=== PATIENT | male | born 1970 | race Two or more races ===

== ENCOUNTER 2019-01-24 22:04 | Inpatient (IN) | payer OTHER ==
[~2019-01-24] VITALS: Ht 177.8 cm; Wt 151.5 kg
[~2019-01-24 22:04] MED LIST: AMOX500T2 PO
--- NOTE | 2019-01-24 22:22 | NUR ---
BIB SELF WITH SISTER FROM OTHER HOSPITAL. AAOX4. BREATHING EVEN AND UNLABORED. AMBULATORY. C/O R CHEST PAIN 03/16 WITH FEELING OF PALPITATION. PAIN STARTED ABOUT 2129 WHILE DRIVING BACK FROM [facility]. PT REPORTS THAT HE FEELS SOB. REPORTS THAT PT WAS JUST DISCHARGED FROM ANOTHER HOSPITAL AND ON HIS WAY HOME. PT ALSO REPORTS THAT HE HAD AN ANGIOGRAM EARLIER. TO ER BED 10. PT PLACED ON MONITOR AND O2 VIA NC @ 2LPM. MD AT BEDSIDE. EKG AT BEDSIDE. IV LINE OBTAINED ON R AC 18G. BLOOD DRAWN AND SENT TO LAB.
[2019-01-24] MEDS ORDERED: NITROGLYCERIN PACKET 1 GM PACKET TD ONE (22:30)
[2019-01-24] MEDS ORDERED: ASPIRIN 325 MG TABLET PO ONE (22:30)
[2019-01-24 22:39] LABS: BASOPHILS % (AUTO) 0.4 % (0.0-2.0); EOSINOPHILS % (AUTO) 0.5 % (0.0-6.0); HEMATOCRIT 45 % (39-51); HEMOGLOBIN 14.9 g/dL (13.5-17.5); LYMPHOCYTES % (AUTO) 19.8 % (20.0-44.0); MEAN CORPUSCULAR HGB CONC 34 g/dl (31.0-36.0); MEAN CORPUSCULAR VOLUME 92 fL (80-96); MONOCYTES # (AUTO) 0.8 /CMM (0.1-1.30); MONOCYTES % (AUTO) 7.9 % (2.0-12.0); NEUTROPHILS # (AUTO) 7.2 /CMM (1.8-8.9); NEUTROPHILS % (AUTO) 71.4 % (43.0-81.0); PLATELET COUNT (AUTO) 242 /CMM (150-450); RED BLOOD CELL COUNT(AUTO) 4.84 MIL/uL (4.5-6.0); WHITE BLOOD COUNT (AUTO) 10.1 K/uL (4.3-11.0)
--- NOTE | 2019-01-24 22:39 | NUR ---
XRAY AT BEDSIDE
--- NOTE | 2019-01-24 22:40 | NUR ---
MADE AWARE OF BP 167/120. NO NEW ORDERS AT THIS TIME.
[2019-01-24] MEDS ORDERED: NITROGLYCERIN PACKET 1 GM PACKET ONE (22:42)
[2019-01-24] MEDS ORDERED: ASPIRIN 325 MG TABLET ONE (22:43)
[2019-01-24 22:48] LABS: CALCIUM, SERUM 9.1 mg/dL (8.5-10.1); CARBON DIOXIDE 30 mmol/L (21-32); CHLORIDE 104 mmol/L (98-107); CREATININE 0.9 mg/dL (0.6-1.3); GLUCOSE 108 mg/dL (74-106); POTASSIUM 3.2 mmol/L (3.5-5.1); SODIUM SERUM 141 mmol/L (136-145); UREA NITROGEN, BLOOD 17 mg/dL (7-18)
[2019-01-24 22:59] LABS: B-TYPE NATRIURETIC PEPTIDE 236 PG/ML (0-125)
--- NOTE | 2019-01-24 23:01 | NUR ---
REPEAT EKG AT BEDSIDE. HR NOTED AT 63, PT VERBALIZES THAT PALPITATION FEELING IS GONE.
--- NOTE | 2019-01-25 00:33 | NUR ---
NOTIFIED OF HR @ 118. PT VERBALIZES THAT HE FEELS THE PALPITATION AGAINS. NNO RECEIVED AT THIS TIME. WILL CONTINUE TO MONITOR THE PATIENT
--- NOTE | 2019-01-25 01:00 | NUR ---
EKG AT BEDSIDE
--- NOTE | 2019-01-25 01:02 | NUR ---
CALLING YULIANA RE: XRTHO READ
[2019-01-25] MEDS ORDERED: METOPROLOL SUCCINATE 25 MG TAB.SR.24H PO STA (01:19)
[2019-01-25] MEDS ORDERED: POTASSIUM CHLORIDE 20 MEQ TAB.PRT.SR PO ONE (01:30)
[2019-01-25] MEDS ORDERED: METOPROLOL SUCCINATE 25 MG TAB.SR.24H ONE (01:31)
[2019-01-25] MEDS ORDERED: MAGNESIUM HYDROXIDE 30 ML UDC PO PRN (02:00)
[2019-01-25] MEDS ORDERED: HYDROCODONE/APAP 5/325MG 1 EACH TABLET PO PRN (02:00)
[2019-01-25] MEDS ORDERED: ACETAMINOPHEN 325 MG TABLET PO PRN (02:00)
[2019-01-25] MEDS ORDERED: ONDANSETRON HCL/PF 4 MG/2 ML VIAL IVP PRN (02:00)
[2019-01-25] MEDS ORDERED: ZOLPIDEM TARTRATE 5 MG TABLET PO PRN (02:00)
[2019-01-25] MEDS ORDERED: Z GUARD REMEDY 2 OZ OINT TP PRN (02:00)
--- NOTE | 2019-01-25 02:11 | NUR ---
PT ASSIGNED TO 309-2
--- NOTE | 2019-01-25 02:16 | NUR ---
METOPROLOL SUCCINATE 25MG PO NOT AVAILABLE AT [facility]. MEDICATION WAS TAKEN FROM JAZZY.
--- NOTE | 2019-01-25 02:16 | NUR ---
REPORT GIVEN TO EVAN GONZALEZ.
[2019-01-25 03:00] VITALS: BP 122/66
--- NOTE | 2019-01-25 03:03 | NUR ---
PT TRANSPORTED TO UNIT WITH EMT AN DRN AT BEDSIDE W/ ACLS PROTOCOL. NAD NOTED DURING TRANSPORT. LISA REEVES RECEIVED PT ON FLOOR AND VERBAL ENDORSEMENT GIVEN
--- NOTE | 2019-01-25 03:10 | NUR ---
ADMISSION NOTE. PATIENT ARRIVED AT 0305 PATIENT IN STABLE CONDITION IN NO APPARENT DISTRESS. DENIES CP AT THIS TIME. BEING ADMITTED BY [facility] FOR CP WITH PALPITATIONS FROM ER. PATIENT HAD ANGIOGRAM YESTERDAY AT [facility] AND WAS DRIVING HOME WHEN HE STATES HE BEGAN TO HAVE SOB AND CP AGAIN AND CAME TO [facility]. PATIENT HAS RIGHT AC 18 GAUGE THAT IS PATENT AND INTACT. TELE APPLIED PATIENT IS RUNNING SR IN 60'S. RIGHT GROIN HAS DRESSING THAT IS CDI WITH NO S/S OF ACTIVE BLEEDING. ORIENTED TO ROOM. CALL LIGHT IN REACH. PATIENT LOW FALL RISK AND AMB. VERBALZIED UNDERSTANDING TO CALL FOR ASSISTANCE NEEDED.
--- NOTE | 2019-01-25 06:58 | NUR ---
RN PM CLOSING NOTES. PATIENT SEEN WITH EYES CLOSED. PATIENT IN NO APPARENT DISTRESS ON ROOM AIR. REPORT TO DAY NURSE FOR CONTINUITY OF CARE. PATIENT HAS HAD NO CP SINCE BEING ADMITTED. PATIENT SR ON TELE MONITOR. WILL ENDORSE POC AND STATUS TO DAYS SIFT RN.
--- NOTE | 2019-01-25 07:22 | NUR ---
TELE/RN OPENING NOTE PATIENT IN BED IN STABLE CONDITION. A/O X 4. NO SIGNS OF ACUTE DISTRESS. NO COMPLAIN OF PAIN OR DISCOMFORT. ON TELE MONITOR NOTED WITH SR WITH PVC RATE OF 64. ALL NEEDS ATTENDED TO. CALL LIGHT WITHIN REACH. WILL CONTINUE TO MONITOR TO ENSURE SAFETY.
[2019-01-25 08:01] VITALS: BP 118/74
--- NOTE | 2019-01-25 08:30 | NUR ---
TELE/RN SEEN AND EXAMINED BY DR SURESH.
[2019-01-25] MEDS: ENOXAPARIN SODIUM 40 MG/0.4 ML DISP.SYRIN SQ SCH ×2 (08:44→08:51)
[2019-01-25] MEDS: AMLODIPINE BESYLATE 5 MG TABLET PO SCH (08:45)
[2019-01-25] MEDS: ASPIRIN 81 MG TAB.CHEW PO SCH (08:45)
[2019-01-25] MEDS: CARVEDILOL 12.5 MG TABLET PO SCH ×2 (08:46→20:39)
[2019-01-25] MEDS ORDERED: METOPROLOL SUCCINATE 25 MG TAB.SR.24H PO SCH (09:00)
[2019-01-25 09:04] LABS: CALCIUM, SERUM 9.1 mg/dL (8.5-10.1); CREATININE 0.9 mg/dL (0.6-1.3); POTASSIUM 4.1 mmol/L (3.5-5.1)
[2019-01-25 09:11] LABS: ALBUMIN 3.4 g/dL (3.4-5.0); BILIRUBIN,TOTAL 0.8 mg/dL (0.2-1.0); MAGNESIUM 2.2 mg/dL (1.8-2.4); PHOSPHORUS 3.7 mg/dL (2.5-4.9); TOTAL PROTEIN, SERUM 6.8 g/dL (6.4-8.2)
[2019-01-25 09:13] LABS: BASOPHILS % (AUTO) 0.2 % (0.0-2.0); EOSINOPHILS % (AUTO) 0.4 % (0.0-6.0); HEMATOCRIT 41 % (39-51); HEMOGLOBIN 13.7 g/dL (13.5-17.5); LYMPHOCYTES # (AUTO) 1.3 /CMM (0.8-4.8); LYMPHOCYTES % (AUTO) 15.2 % (20.0-44.0); MEAN CORPUSCULAR HGB CONC 33 g/dl (31.0-36.0); MEAN CORPUSCULAR VOLUME 91 fL (80-96); MONOCYTES # (AUTO) 0.7 /CMM (0.1-1.30); MONOCYTES % (AUTO) 8.3 % (2.0-12.0); NEUTROPHILS # (AUTO) 6.4 /CMM (1.8-8.9); NEUTROPHILS % (AUTO) 75.9 % (43.0-81.0); PLATELET COUNT (AUTO) 222 /CMM (150-450); RED BLOOD CELL COUNT(AUTO) 4.52 MIL/uL (4.5-6.0); WHITE BLOOD COUNT (AUTO) 8.5 K/uL (4.3-11.0)
[2019-01-25] MEDS ORDERED: ASPI-1169 PO (09:14)
[2019-01-25] MEDS ORDERED: METO25TA3 PO (09:14)
--- NOTE | 2019-01-25 09:45 | NUR ---
TELE/RN SEEN BY DR GAN.
[2019-01-25 16:00] VITALS: BP 119/67
--- NOTE | 2019-01-25 18:15 | NUR ---
TELE/RN CLOSING NOTE PATIENT IN BED IN STABLE CONDITION. A/O X 4. NO SIGNS OF ACUTE DISTRESS. NO COMPLAIN OF PAIN OR DISCOMFORT. ON TELE MONITOR NOTED WITH SR WITH RATE OF 64. ALL NEEDS ATTENDED TO. CALL LIGHT WITHIN REACH. WILL ENDORSE TO NEXT SHIFT FOR CONTINUITY OF CARE.
--- NOTE | 2019-01-25 19:20 | NUR ---
RN NOTES; RECEIVED AWAKE ON BED, A/OX4, ABLE TO MAKE NEEDS KNOWN, NO PAIN OR DISCOMFORT UPON CHANGE OF SHIFT, ON TELE MONITOR SR-65, AMBULATORY, STEADY GAIT, CONTINENT BOTH B/B,,HL RAC G#18, KEPT ON CLOSE VISUAL CHECK, ORIENTED TO UNIT AND STAFF, BED LOW AND LOCKED, CALL LIGHT WITHIN EASY REACH, FALL,SAFETY AND ASPIRATION PRECAUTION OBSERVED AT ALL TIMES.
[2019-01-25 20:00] VITALS: BP 131/78
[2019-01-26] VITALS: BP 121/76
[2019-01-26 04:00] VITALS: BP 131/72
[2019-01-26 06:19] LABS: BASOPHILS % (AUTO) 0.2 % (0.0-2.0); EOSINOPHILS % (AUTO) 1.2 % (0.0-6.0); HEMATOCRIT 40 % (39-51); HEMOGLOBIN 13.2 g/dL (13.5-17.5); LYMPHOCYTES # (AUTO) 1.9 /CMM (0.8-4.8); LYMPHOCYTES % (AUTO) 25.5 % (20.0-44.0); MEAN CORPUSCULAR HGB CONC 33 g/dl (31.0-36.0); MEAN CORPUSCULAR VOLUME 91 fL (80-96); MONOCYTES # (AUTO) 0.7 /CMM (0.1-1.30); MONOCYTES % (AUTO) 9.8 % (2.0-12.0); NEUTROPHILS # (AUTO) 4.8 /CMM (1.8-8.9); NEUTROPHILS % (AUTO) 63.3 % (43.0-81.0); PLATELET COUNT (AUTO) 210 /CMM (150-450); RED BLOOD CELL COUNT(AUTO) 4.34 MIL/uL (4.5-6.0); WHITE BLOOD COUNT (AUTO) 7.6 K/uL (4.3-11.0)
--- NOTE | 2019-01-26 06:24 | NUR ---
RN NOTES: SLEEP WELL IN THE NIGHT, NO PAIN OR DISCOMFORT THE ENTIRE NIGHT, CALLS AND NEEDS ATTENDED, FALL,SAFETY AND ASPIRATION PRECAUTION OBSERVED, ENDORSED FOR CONTINUITY OF CARE.
[2019-01-26 06:34] LABS: CALCIUM, SERUM 8.7 mg/dL (8.5-10.1); CREATININE 0.9 mg/dL (0.6-1.3); MAGNESIUM 2.3 mg/dL (1.8-2.4); PHOSPHORUS 3.9 mg/dL (2.5-4.9); POTASSIUM 3.9 mmol/L (3.5-5.1)
--- NOTE | 2019-01-26 07:24 | NUR ---
TELE/RN OPENING NOTE PATIENT IN BED IN STABLE CONDITION. A/O X 4. NO SIGNS OF ACUTE DISTRESS. NO COMPLAIN OF PAIN OR DISCOMFORT. ON TELE MONITOR NOTED WITH SINUS RUTH IN LOW 50'S. ALL NEEDS ATTENDED TO. CALL LIGHT WITHIN REACH. WILL CONTINUE TO MONITOR TO ENSURE SAFETY.
[2019-01-26 08:00] VITALS: BP 120/69
[2019-01-26 08:15] VITALS: BP 120/69
[2019-01-26] MEDS: AMLODIPINE BESYLATE 5 MG TABLET PO SCH (08:15)
[2019-01-26] MEDS: CARVEDILOL 12.5 MG TABLET PO SCH (08:15)
[2019-01-26] MEDS: ASPIRIN 81 MG TAB.CHEW PO SCH (08:15)
[2019-01-26] MEDS: ENOXAPARIN SODIUM 40 MG/0.4 ML DISP.SYRIN SQ SCH (08:16)
--- NOTE | 2019-01-26 08:42 | NUR ---
RT NOTE PT REFUSED ABG. RN MICHELET NOTIFIED. PT AWAKE AND ALERT. NO DISTRESS NOTED.
[2019-01-26] MEDS ORDERED: CARV12.52 PO (11:21)
[2019-01-26] MEDS ORDERED: AMLO5TAB9 PO (11:21)
--- NOTE | 2019-01-26 12:00 | NUR ---
MS/REPLANTING MACHINE OPERATOR PATIENT DISCHARGE HOME IN STABLE CONDITION. A/O X 4. NO SIGNS OF ACUTE DISTRESS. NO COMPLAIN OF PAIN OR DISCOMFORT. DISCHARGE EDUCATION AND TEACHINGS PROVIDED, VERBALIZED UNDERSTANDING, PRESCRIPTION PROVIDED, MADE AWARE TO FOLLOW UP WITH PRIMARY PHYSICIAN, GOVERNMENT PROPERTY INSPECTOR AND ENVIRONMENTAL EMERGENCIES PLANNER WITHIN A WEEK, VERBALIZED UNDERSTANDING. NAME BAND AND IV LINE REMOVED. LEFT IN STABLE CONDITION ACCOMPANIED BY SISTER VIA PRIVATE CAR.
== END 2019-01-26 11:45 | disposition home or self-care (01) | DRG 201 ==
LOC: ER 22:06 → TELE 01-25 02:45 → MED 01-25 09:16 → TELE 01-25 12:35 → MED 01-26 08:14
PROVIDERS: ADMIT Nurse Practitioner Acute Care; ATTEND Nurse Practitioner Acute Care
DX: I48.0 Paroxysmal atrial fibrillation (principal); E66.2 Morbid (severe) obesity with alveolar hypoventilation; E87.6 Hypokalemia; Z87.891 Personal history of nicotine dependence; R25.2 Cramp and spasm; I10 Essential (primary) hypertension; Z68.42 Body mass index [BMI] 45.0-49.9, adult
CPT/HCPCS: 36415; 71045-TC; 80048-TC; 80053-TC; 80061-TC; 83735-TC; 83880; 84100-TC; 84443-TC; 84484-TC; 85025-TC; 85378-TC; 87081-TC; 93307-TC; 93970-TC; G0378; J1650

== ENCOUNTER 2019-09-19 05:18 | Inpatient (IN) | payer OTHER ==
[~2019-09-19] VITALS: Ht 176.5 cm; Wt 152.0 kg
[2019-09-19] VITALS (7 sets, daily range): BP systolic 89–121; BP diastolic 48–68
[~2019-09-19 05:18] MED LIST changes: +AMLO5TAB9 PO; -AMOX500T2 PO; +ASPI-1169 PO; +CARV12.52 PO
--- NOTE | 2019-09-19 05:25 | NUR ---
PT BIB EMS C/O INTERMITTENT RAPID HEART RATE X1 HR PACKAGE DELIVERY ROOM SERVICE RUNNER. "I HAVE CP WHEN MY HR IS HIGH". PT COMPLAINED OF MIDSTERNAL CHEST PAIN AN HOUR AGO BUT DENIES CHEST PAIN AT THIS TIME. HR UPON ARRIVAL IS AT 160'S. PT CONNECTED TO THE HOME INSURANCE AGENT AND POX
--- NOTE | 2019-09-19 05:25 | NUR ---
IV LINE ESTABLISHED RAC G 20. BLOOD DRAWN AND SENT TO LAB.
[2019-09-19] MEDS ORDERED: ADENOSINE 6 MG/2 ML VIAL ONE (05:28)
[2019-09-19] MEDS ORDERED: IV NS 0.9% 500 ML IV ONE (05:30)
[2019-09-19] MEDS ORDERED: ADENOSINE 6 MG/2 ML VIAL IVP ONE (05:30)
[2019-09-19 05:35] LABS: BASOPHILS % (AUTO) 0.1 % (0.0-2.0); HEMATOCRIT 47 % (39-51); HEMOGLOBIN 15.3 g/dL (13.5-17.5); LYMPHOCYTES # (AUTO) 1.3 /CMM (0.8-4.8); LYMPHOCYTES % (AUTO) 6.2 % (20.0-44.0); MEAN CORPUSCULAR HGB CONC 33 g/dl (31.0-36.0); MEAN CORPUSCULAR VOLUME 91 fL (80-96); MONOCYTES # (AUTO) 1.2 /CMM (0.1-1.30); MONOCYTES % (AUTO) 5.5 % (2.0-12.0); NEUTROPHILS # (AUTO) 18.7 /CMM (1.8-8.9); NEUTROPHILS % (AUTO) 88.2 % (43.0-81.0); PLATELET COUNT (AUTO) 217 /CMM (150-450); RED BLOOD CELL COUNT(AUTO) 5.13 MIL/uL (4.5-6.0); WHITE BLOOD COUNT (AUTO) 21.2 K/uL (4.3-11.0)
[2019-09-19 05:42] LABS: CALCIUM, SERUM 9.2 mg/dL (8.5-10.1); CARBON DIOXIDE 30 mmol/L (21-32); CHLORIDE 100 mmol/L (98-107); CREATININE 1.3 mg/dL (0.6-1.3); GLUCOSE 139 mg/dL (74-106); POTASSIUM 3.6 mmol/L (3.5-5.1); SODIUM SERUM 140 mmol/L (136-145); UREA NITROGEN, BLOOD 12 mg/dL (7-18)
[2019-09-19] MEDS ORDERED: METOPROLOL TARTRATE INJ 5 MG/5 ML AMPUL ONE (05:44)
--- NOTE | 2019-09-19 05:46 | NUR ---
XRAY AT BEDSIDE
--- NOTE | 2019-09-19 05:50 | NUR ---
5MG METOPROLOL HELD PER VERBAL MD FREEMAN ORDER. VS BP: 146/83 HR:92
--- NOTE | 2019-09-19 05:56 | NUR ---
ER TALKING TO RILEY YANCEY REGARDING PT ADMISSION.
[2019-09-19] MEDS ORDERED: METOPROLOL TARTRATE INJ 5 MG/5 ML AMPUL IV ONE (06:00)
--- NOTE | 2019-09-19 06:05 | NUR ---
BED ASSIGNMENT 323-2
[2019-09-19] MEDS ORDERED: HYDROCODONE/APAP 5/325MG 1 EACH TABLET PO PRN (06:30)
[2019-09-19] MEDS ORDERED: MAGNESIUM HYDROXIDE 30 ML UDC PO PRN (06:30)
[2019-09-19] MEDS ORDERED: ONDANSETRON HCL/PF 4 MG/2 ML VIAL IVP PRN (06:30)
[2019-09-19] MEDS ORDERED: MORPHINE SULFATE INJ 2 MG/ML DISP.SYRIN IV PRN (06:30)
[2019-09-19] MEDS ORDERED: MAG HYDROX/AL HYDROX/SIMETH 30 ML UDC PO PRN (06:30)
[2019-09-19 07:02] LABS: ALBUMIN 3.7 g/dL (3.4-5.0); BILIRUBIN,DIRECT 0.2 mg/dL (0.0-0.2); BILIRUBIN,TOTAL 0.6 mg/dL (0.2-1.0); MAGNESIUM 2.1 mg/dL (1.8-2.4); TOTAL PROTEIN, SERUM 8.5 g/dL (6.4-8.2)
--- NOTE | 2019-09-19 07:22 | NUR ---
REPORT GIVEN TO LISA NANCE
[2019-09-19 07:48] LABS: THYROID STIMULATING HORMONE 0.537 uIU/mL (0.358-3.74)
--- NOTE | 2019-09-19 07:55 | NUR ---
PATIENT TRANSFERRED TO ROOM 323-2 VIA ACLS PROTOCOL, ENDORSED TO LEE ANN RN. PATIENT A/OX4, ON O2 AT 4LPM VIA NC, AMBULATORY.
--- NOTE | 2019-09-19 08:00 | NUR ---
rn notes patient received on 4l o2, no sob noted, patient denies chest pain at this time. Vital signs stable. Bed at the lowest setting, call light within reach, side rails up x2.
[2019-09-19] MEDS: AMLODIPINE BESYLATE 5 MG TABLET PO SCH (08:45)
[2019-09-19] MEDS: CARVEDILOL 12.5 MG TABLET PO SCH ×2 (08:45→20:14)
[2019-09-19] MEDS ORDERED: ASPIRIN 81 MG TAB.CHEW PO SCH (09:00)
--- NOTE | 2019-09-19 09:11 | NUR ---
PV DESIGN ENGINEER NOTES WITH ORDER FROM DR SURESH TO TRANSFER TO JAZZY PATIENT WILL REQUIRE AMIODARONE DRIP. CALLED [facility] LIFE SKILLS WORKER AND REQUESTED FOR BED
[2019-09-19] MEDS ORDERED: AMIODARONE 900 MG in IV D5W 500 ML IV PRN ×4 (09:30)
--- NOTE | 2019-09-19 09:50 | NUR ---
RN NOTES RECEIVED PT FROM [facility] IN ROOM 103, JAZZY STATUS, PT IS A/Ox4, ON RA, NO SOB NOTED, FAMILY AT THE BEDSIDE, ON TELE PT SR HR IN 90'S , DR KERWIN BENAVIDES REGARDING HEART RHYTHM, NEW ORDER RECEIVED , R AC IV SITE G 20 , CLEAN, DRY AND INTACT, SR UP x3, CALL LIGHT WITHIN EASY REACH, BED LOCKED AND IN LOWEST POSITION, CONTINUE TO MONITOR
--- NOTE | 2019-09-19 09:52 | NUR ---
rn notes Patient transfered to BETO RN in JAZZY for MALCOLM, report given bedside.
[2019-09-19] MEDS ORDERED: RIVAROXABAN 10 MG TABLET PO SCH (10:00)
[2019-09-19] MEDS: AMIODARONE 150 MG in IV D5W 100 ML IV ONE ×2 (10:15→10:22)
[2019-09-19] MEDS: DRONEDARONE HYDROCHLORIDE 400 MG TABLET PO SCH ×2 (10:37→17:24)
[2019-09-19] MEDS: ACETAMINOPHEN 325 MG TABLET PO PRN ×2 (10:41→20:14)
--- NOTE | 2019-09-19 12:00 | NUR ---
RN NOTES PT SITTING UP ON CHAIR, C/O SORE THROAT , DR ABRAHAM NOTED. VSS STABLE, CONTINUE TO MONITOR.
[2019-09-19 16:42] LABS: BILIRUBIN,URINE NEGATIVE (NEGATIVE); BLOOD, URINE TRACE-INTA Ery/uL (NEGATIVE); COLOR,URINE YELLOW (YELLOW); KETONES,URINE 15 (NEGATIVE); LEUKOCYTE ESTERASE ,URINE NEGATIVE (NEGATIVE); NITRITE, URINE NEGATIVE (NEGATIVE); PROTEIN,URINE 30 mg/dl (NEGATIVE); UGLUCOSE NEGATIVE (NEGATIVE)
[2019-09-19 16:43] LABS: APPEARANCE,URINE CLEAR (CLEAR)
[2019-09-19 17:28] LABS: BACTERIA,URINE Few /HPF (None Seen); COARSE GRANULAR CASTS,URINE Few /LPF (None Seen); SQUAMOUS EPITHELIAL CELL,UR Few /HPF (None Seen); WBC,URINE 0-2 /HPF (0-3)
--- NOTE | 2019-09-19 18:00 | NUR ---
RN NOTES NO SIGNIFICANT CHANGES NOTED ON THIS SHIFT, PT STILL SR ON THE MONITOR , NO DISTESS NOTED, WILL ENDOSE TO BRANCH OPERATIONS MANAGER NURSE FOR CONTINUITY OF CARE .
--- NOTE | 2019-09-19 19:25 | NUR ---
JAZZY/RN NOTES PATIENT RECEIVED SITTING ON CHAIR, WATCHING TV, ALERT AND ORIENTED X4, DENIES ANY PAIN AT THIS TIME. IN NO ACUTE DISTRESS. BREATHING EVEN AND UNLABORED. NO SHORTNESS OF BREATH NOTED. ON TELE MONITOR WITH SINUS RHYTHM. IV SITE WITH NO S/S OF INFECTION/INFILTRATION. SAFETY MAINTAINED. BED AT THE LOWEST LOCKED POSITIONED. CALL LIGHT WITHIN REACH. WILL CONTINUE TO MONITOR PER PLAN OF CARE.
[2019-09-20] VITALS: BP 120/68
[2019-09-20 04:00] VITALS: BP 100/52
--- NOTE | 2019-09-20 06:53 | NUR ---
JAZZY/RN NOTES PATIENT REMAINED IN STABLE CONDITION. RESTING COMFORTABLY AT THIS TIME. ALERT AND ORIENTED X4, DENIES ANY PAIN AT THIS TIME. IN NO ACUTE DISTRESS. BREATHING EVEN AND UNLABORED. NO SHORTNESS OF BREATH NOTED. ON TELE MONITOR WITH SINUS RHYTHM/ SINUS RUTH IN RATE 56. IV SITE WITH NO S/S OF INFECTION/INFILTRATION. SAFETY MAINTAINED. BED AT THE LOWEST LOCKED POSITIONED. CALL LIGHT WITHIN REACH. WILL ENDORSE TO AM SHIFT NURSE FOR MALCOLM.
--- NOTE | 2019-09-20 07:00 | NUR ---
RN INITIAL NOTE PATIENT IN BED, AWAKE AND ALERTX4. ON THE CHAIR. ON ROOM AIR, NO COMPLAINS OF ANY PAIN OR SOB AT THIS TIME. ON TELE MONITOR, SR. HAS A RIGHT AC #20. SL. LABS PENDING. BED IN LOWEST POSITION. CALL LIGHT WITHIN REACH, WILL CONTINUE TO MONITOR
[2019-09-20 07:18] LABS: BASOPHILS % (AUTO) 0.2 % (0.0-2.0); EOSINOPHILS % (AUTO) 0.1 % (0.0-6.0); HEMATOCRIT 41 % (39-51); HEMOGLOBIN 13.6 g/dL (13.5-17.5); LYMPHOCYTES # (AUTO) 1.7 /CMM (0.8-4.8); LYMPHOCYTES % (AUTO) 11.3 % (20.0-44.0); MEAN CORPUSCULAR HGB CONC 33 g/dl (31.0-36.0); MEAN CORPUSCULAR VOLUME 91 fL (80-96); MONOCYTES # (AUTO) 1.4 /CMM (0.1-1.30); MONOCYTES % (AUTO) 9.8 % (2.0-12.0); NEUTROPHILS # (AUTO) 11.6 /CMM (1.8-8.9); NEUTROPHILS % (AUTO) 78.6 % (43.0-81.0); PLATELET COUNT (AUTO) 211 /CMM (150-450); RED BLOOD CELL COUNT(AUTO) 4.53 MIL/uL (4.5-6.0); WHITE BLOOD COUNT (AUTO) 14.7 K/uL (4.3-11.0)
[2019-09-20 07:38] LABS: CALCIUM, SERUM 8.9 mg/dL (8.5-10.1); CREATININE 1.4 mg/dL (0.6-1.3); POTASSIUM 3.6 mmol/L (3.5-5.1)
[2019-09-20 08:00] VITALS: BP 106/64
[2019-09-20] MEDS: DRONEDARONE HYDROCHLORIDE 400 MG TABLET PO SCH (08:04)
[2019-09-20] MEDS: AMLODIPINE BESYLATE 5 MG TABLET PO SCH (08:07)
[2019-09-20] MEDS: CARVEDILOL 12.5 MG TABLET PO SCH (08:08)
--- NOTE | 2019-09-20 08:11 | NUR ---
RN NOTE CARVEDILOL NOT GIVEN DUE TO HR OF 58
[2019-09-20 08:15] VITALS: BP 106/64
[2019-09-20] MEDS ORDERED: AZITHROMYCIN 250 MG TABLET PO SCH (09:00)
--- NOTE | 2019-09-20 09:40 | NUR ---
RN NOTE DR SURESH AT BEDSIDE, CLEARING PATIENT FOR DC TODAY. WAITING FOR DR ABRAHAM TO ORDER THE DC.
[2019-09-20] MEDS ORDERED: DRON400T2 PO (11:06)
--- NOTE | 2019-09-20 11:50 | NUR ---
MANAGER HEALTH NOTE PATIENT ALERT AND ORIENTED X4. GOING HOME VIA PRIVATE CAR. FAMILY AT BEDSIDE. EXIT CARE PACKET GIVEN TO PATIENT AND DISCHARGE INSTRUCTIONS. IV SITE AND ID BAND REMOVED. EDUCATED PATIENT, INSTRUCTED REGARDING FOLLOW UP APPOINTMENTS. VERBALIZED UNDERSTANDING. NO PICTURES TAKEN, SKIN IS INTACT. PATIENT REFUSED A WHEELCHAIR, WALKED INSTEAD.
== END 2019-09-20 11:47 | disposition home or self-care (01) | DRG 308 ==
LOC: ER 05:18 → MED 07:33 → TELE 08:10 → TELE1 09:47 → TELE-TD 11:52 → MEDSG1 09-20 08:37
PROVIDERS: ADMIT Family Medicine; ATTEND Family Medicine
DX: I48.91 Unspecified atrial fibrillation (principal); N17.0 Acute kidney failure with tubular necrosis; Z68.42 Body mass index [BMI] 45.0-49.9, adult; I10 Essential (primary) hypertension; Z79.82 Long term (current) use of aspirin; F17.210 Nicotine dependence, cigarettes, uncomplicated; D72.829 Elevated white blood cell count, unspecified; R73.9 Hyperglycemia, unspecified; E66.01 Morbid (severe) obesity due to excess calories; Z82.49 Family history of ischemic heart disease and other diseases of the circulatory system
CPT/HCPCS: 36415; 71045-TC; 80048-TC; 80061-TC; 80076-TC; 81000-TC; 83735-TC; 84100-TC; 84443-TC; 84484-TC; 85025-TC; 85730-TC; 87081-TC; 87086-TC; G0378; J0153; J0282; J3490; J7040; J7060

== ENCOUNTER 2021-07-15 06:38 | Emergency (ER) | payer OTHER ==
[~2021-07-15] VITALS: Ht 177.8 cm; Wt 161.0 kg
[~2021-07-15 06:38] MED LIST changes: +AMLO-212 PO; -AMLO5TAB9 PO; +DRON400T6 PO
[2021-07-15] MEDS ORDERED: APIXABAN 5 MG TABLET PO SCH (07:00)
[2021-07-15] MEDS ORDERED: APIXABAN 5 MG TABLET ONE (07:01)
[2021-07-15] MEDS ORDERED: DILTIAZEM HCL 25 MG IV ONE (07:09)
[2021-07-15] MEDS ORDERED: DILTIAZEM HCL 50 MG IV IV ONE ×2 (07:30→08:30)
[2021-07-15 07:35] LABS: BASOPHILS % (AUTO) 0.5 % (0.0-2.0); EOSINOPHILS % (AUTO) 1.2 % (0.0-6.0); HEMATOCRIT 44 % (39-51); HEMOGLOBIN 14.5 g/dL (13.5-17.5); LYMPHOCYTES # (AUTO) 1.5 K/uL (0.8-4.8); LYMPHOCYTES % (AUTO) 21.4 % (20.0-44.0); MEAN CORPUSCULAR HGB CONC 33 g/dl (31.0-36.0); MEAN CORPUSCULAR VOLUME 92 fL (80-96); MONOCYTES # (AUTO) 0.6 K/uL (0.1-1.30); MONOCYTES % (AUTO) 8.3 % (2.0-12.0); NEUTROPHILS # (AUTO) 4.8 K/uL (1.8-8.9); NEUTROPHILS % (AUTO) 68.6 % (43.0-81.0); PLATELET COUNT (AUTO) 236 K/uL (150-450); RED BLOOD CELL COUNT(AUTO) 4.83 MIL/uL (4.5-6.0)
[2021-07-15 08:22] LABS: CALCIUM, SERUM 8.7 mg/dL (8.5-10.1); CARBON DIOXIDE 30 mmol/L (21-32); CHLORIDE 104 mmol/L (98-107); CREATININE 0.9 mg/dL (0.6-1.3); GLUCOSE 131 mg/dL (74-106); POTASSIUM 3.6 mmol/L (3.5-5.1); SODIUM SERUM 141 mmol/L (136-145); UREA NITROGEN, BLOOD 14 mg/dL (7-18)
--- NOTE | 2021-07-15 08:34 | NUR ---
MASTER OROURKE, METAL FILER.
--- NOTE | 2021-07-15 08:35 | NUR ---
THE PATIENT IS TAKEN TO CT
[2021-07-15] MEDS ORDERED: IOHEXOL-350 100 ML VIAL IV ONE (08:38)
[2021-07-15] MEDS ORDERED: IV NS 0.9% 250 ML IV ONE (08:38)
[2021-07-15] MEDS ORDERED: DILTIAZEM HCL 50 MG IV ONE (08:42)
--- NOTE | 2021-07-15 08:49 | NUR ---
THE PATIENT IS BACK FROM CT
--- NOTE | 2021-07-15 09:07 | NUR ---
PAGED DR. RIVAS
[2021-07-15] MEDS ORDERED: APIX5TAB PO (09:32)
--- NOTE | 2021-07-15 09:56 | NUR ---
IV removed. Catheter intact and site benign. Pressure and 4x4 applied to site. No bleeding noted.Patient discharged to home in stable condition. Written and verbal after care instructions given. Patient verbalizes understanding of instruction.
[2021-07-15 09:57] VITALS: BP 130/61
== END 2021-07-15 09:57 | disposition home or self-care (01) ==
LOC: ER 06:42
DX: I48.20 Chronic atrial fibrillation, unspecified (principal); I10 Essential (primary) hypertension; F17.200 Nicotine dependence, unspecified, uncomplicated; Z79.899 Other long term (current) drug therapy; Z79.82 Long term (current) use of aspirin
CPT/HCPCS: 36415; 71045; 71275; 80048; 83880; 84484; 85025; 85378; 93005 ×2; 96374; 96376; 99285; J3490 ×2; J7050; Q9967

== ENCOUNTER 2022-03-10 02:24 | Emergency (ER) | payer OTHER ==
[~2022-03-10] VITALS: Ht 180.3 cm; Wt 158.8 kg
[~2022-03-10 02:24] MED LIST changes: +APIX5TAB PO
--- NOTE | 2022-03-10 02:49 | NUR ---
URINE SENT TO LAB
--- NOTE | 2022-03-10 02:52 | NUR ---
BLOOD COLLECTED AND SENT TO LAB
[2022-03-10] MEDS ORDERED: ONDANSETRON HCL/PF 4 MG/2 ML VIAL ONE (02:53)
[2022-03-10] MEDS ORDERED: KETOROLAC TROMETHAMINE INJ 30 MG/ML VIAL ONE (02:53)
--- NOTE | 2022-03-10 02:53 | NUR ---
BIBWIFE. TO ER BED 3. AAOX4. NOT IN RESP DISTRESS. AMBULATORY. CAME IN FOR L FLANK PAIN THAT STARTED X 1 HR ACTUARIAL CONSULTANT. PAIN IS 10/10 SHARP. PT STATES THAT HE WAS AT THE URGENT CARE EARLIER THIS MORNING BECAUSE HE STARTED TO HAVE BLOOD IN HIS URINE. HE STATES THAT HE WAS DIAGNOSED WITH RENAL CYST EARLIER. PT WAS NOTED BLOODY URINE UPON COLLECTION. MD WAS AT THE BEDSIDE. ORDERS RECEIVED, NOTED AND CARRIED OUT
[2022-03-10] MEDS ORDERED: ONDANSETRON HCL/PF 4 MG/2 ML VIAL IVP ONE (03:00)
[2022-03-10] MEDS ORDERED: KETOROLAC TROMETHAMINE INJ 30 MG/ML VIAL IV ONE (03:00)
[2022-03-10] MEDS ORDERED: IV NS 0.9% 1,000 ML BAG IV ONE (03:00)
--- NOTE | 2022-03-10 03:03 | NUR ---
[facility]
[2022-03-10 03:13] LABS: BASOPHILS % (AUTO) 0.3 % (0.0-2.0); BILIRUBIN,URINE NEGATIVE (NEGATIVE); COLOR,URINE YELLOW (YELLOW); EOSINOPHILS % (AUTO) 0.7 % (0.0-6.0); HEMATOCRIT 41 % (39-51); HEMOGLOBIN 13.8 g/dL (13.5-17.5); LEUKOCYTE ESTERASE ,URINE NEGATIVE (NEGATIVE); LYMPHOCYTES # (AUTO) 1.6 K/uL (0.8-4.8); LYMPHOCYTES % (AUTO) 22.2 % (20.0-44.0); MEAN CORPUSCULAR HGB CONC 33 g/dl (31.0-36.0); MEAN CORPUSCULAR VOLUME 91 fL (80-96); MONOCYTES # (AUTO) 0.6 K/uL (0.1-1.30); MONOCYTES % (AUTO) 8.9 % (2.0-12.0); NEUTROPHILS # (AUTO) 4.9 K/uL (1.8-8.9); NEUTROPHILS % (AUTO) 67.9 % (43.0-81.0); NITRITE, URINE NEGATIVE (NEGATIVE); PLATELET COUNT (AUTO) 218 K/uL (150-450); PROTEIN,URINE NEGATIVE (NEGATIVE); RED BLOOD CELL COUNT(AUTO) 4.57 MIL/uL (4.5-6.0); UGLUCOSE NEGATIVE (NEGATIVE); UROBILINOGEN,URINE 0.2 EU/dL (0.2); WHITE BLOOD COUNT (AUTO) 7.3 K/uL (4.3-11.0)
[2022-03-10 03:16] LABS: BACTERIA,URINE None seen /HPF (None Seen); RBC,URINE TOO NUMEROUS TO COUN /HPF (0-2); SQUAMOUS EPITHELIAL CELL,UR Few /HPF (None Seen); WBC,URINE 0-2 /HPF (0-3)
--- NOTE | 2022-03-10 03:18 | NUR ---
PT BACK FROM CT, RECONNECTED TO MONITOR
[2022-03-10 03:21] LABS: CALCIUM, SERUM 8.8 mg/dL (8.5-10.1); CREATININE 1.3 mg/dL (0.6-1.3)
[2022-03-10 03:27] LABS: ALBUMIN 3.5 g/dL (3.4-5.0); BILIRUBIN,DIRECT 0.1 mg/dL (0.0-0.2); BILIRUBIN,TOTAL 0.3 mg/dL (0.2-1.0); TOTAL PROTEIN, SERUM 7.6 g/dL (6.4-8.2)
--- NOTE | 2022-03-10 03:56 | NUR ---
ASIF PAGED PER CARRIE- EST. READ TIME IN ABOUT AN HOUR AND A HALF BY DR CHRISTIAN
[2022-03-10] MEDS ORDERED: TAMS-12 PO (07:08)
[2022-03-10] MEDS ORDERED: IBUP-1955 PO (07:08)
[2022-03-10] MEDS ORDERED: HYDR-4209 PO (07:08)
[2022-03-10] MEDS ORDERED: ONDA4TAB5 PO (07:08)
--- NOTE | 2022-03-10 07:14 | NUR ---
Patient discharged to home in stable condition. Written and verbal after care instructions given. Patient verbalizes understanding of instruction.
[2022-03-10 07:15] VITALS: BP 140/98
== END 2022-03-10 07:26 | disposition home or self-care (01) ==
LOC: ER 02:24
DX: R10.9 Unspecified abdominal pain (principal); I10 Essential (primary) hypertension; I48.91 Unspecified atrial fibrillation; F17.200 Nicotine dependence, unspecified, uncomplicated; Z79.899 Other long term (current) drug therapy
CPT/HCPCS: 99284; 74176; 96374; 96361; 96375; 85025; 80048; 83690; 80076; 81001; 36415; 85730; 87081; J1885; J2405; J7030

== ENCOUNTER 2022-03-15 22:54 | Emergency (ER) | payer OTHER ==
[~2022-03-15] VITALS: Ht 177.8 cm; Wt 158.8 kg
[~2022-03-15 22:54] MED LIST changes: +HYDR-4209 PO; +IBUP-1955 PO; +ONDA4TAB5 PO; +TAMS-12 PO
--- NOTE | 2022-03-15 23:02 | NUR ---
MADDYRA 39 FROM HOME FOR L FLANK PAIN W. DX OF KIDNEY STONE. PATIENT ALERT AND ORIENTED X3. AMBULATORY WITH NON LABORED BREATHING IN BED 12 ON MONITOR AND POX, AWAITING MD WERNER.
--- NOTE | 2022-03-15 23:03 | NUR ---
RN AT BEDSIDE
--- NOTE | 2022-03-15 23:05 | NUR ---
BLOOD COLLECTED AND SENT TO LAB
--- NOTE | 2022-03-15 23:10 | NUR ---
RAC #18G S/L BLOOD COLLECTED AND SENT TO LAB
[2022-03-15] MEDS ORDERED: ONDANSETRON HCL/PF 4 MG/2 ML VIAL ONE (23:11)
[2022-03-15] MEDS ORDERED: KETOROLAC TROMETHAMINE 15 MG/ML VIAL ONE (23:11)
[2022-03-15] MEDS: IV NS 0.9% 1,000 ML BAG IV ONE (23:16)
[2022-03-15] MEDS: KETOROLAC TROMETHAMINE INJ 30 MG/ML VIAL IV ONE (23:17)
[2022-03-15] MEDS: ONDANSETRON HCL/PF 4 MG/2 ML VIAL IVP ONE (23:17)
--- NOTE | 2022-03-15 23:17 | NUR ---
PT NOT ABLE TO URINATE AT THIS TIME; WILL F/U WITH URINE SAMPLE LATER
[2022-03-15 23:36] LABS: BASOPHILS % (AUTO) 0.4 % (0.0-2.0); EOSINOPHILS % (AUTO) 0.6 % (0.0-6.0); HEMATOCRIT 42 % (39-51); HEMOGLOBIN 13.8 g/dL (13.5-17.5); LYMPHOCYTES # (AUTO) 3.1 K/uL (0.8-4.8); LYMPHOCYTES % (AUTO) 29.7 % (20.0-44.0); MEAN CORPUSCULAR HGB CONC 33 g/dl (31.0-36.0); MEAN CORPUSCULAR VOLUME 90 fL (80-96); MONOCYTES % (AUTO) 9.4 % (2.0-12.0); NEUTROPHILS # (AUTO) 6.3 K/uL (1.8-8.9); NEUTROPHILS % (AUTO) 59.9 % (43.0-81.0); PLATELET COUNT (AUTO) 251 K/uL (150-450); RED BLOOD CELL COUNT(AUTO) 4.64 MIL/uL (4.5-6.0); WHITE BLOOD COUNT (AUTO) 10.4 K/uL (4.3-11.0)
[2022-03-15 23:46] LABS: CALCIUM, SERUM 9.3 mg/dL (8.5-10.1); CREATININE 1.5 mg/dL (0.6-1.3); POTASSIUM 3.6 mmol/L (3.5-5.1)
[2022-03-15 23:55] LABS: ALBUMIN 3.6 g/dL (3.4-5.0); BILIRUBIN,DIRECT 0.1 mg/dL (0.0-0.2); BILIRUBIN,TOTAL 0.4 mg/dL (0.2-1.0); TOTAL PROTEIN, SERUM 7.5 g/dL (6.4-8.2)
--- NOTE | 2022-03-16 00:07 | NUR ---
URINE COLLECTED AND SENT TO LAB
--- NOTE | 2022-03-16 00:35 | NUR ---
PT TAKEN TO CT VIA JACLYN
--- NOTE | 2022-03-16 00:38 | NUR ---
BACK FROM CT
--- NOTE | 2022-03-16 00:52 | NUR ---
PATIENT ASLEEP IN BED EASILY AROUSABLE.
[2022-03-16 00:59] LABS: BILIRUBIN,URINE NEGATIVE (NEGATIVE); COLOR,URINE YELLOW (YELLOW); LEUKOCYTE ESTERASE ,URINE NEGATIVE (NEGATIVE); NITRITE, URINE NEGATIVE (NEGATIVE); PROTEIN,URINE NEGATIVE (NEGATIVE); UGLUCOSE NEGATIVE (NEGATIVE); UROBILINOGEN,URINE 0.2 EU/dL (0.2)
[2022-03-16 01:31] LABS: BACTERIA,URINE Few /HPF (None Seen); RBC,URINE 51-80 /HPF (0-2); SQUAMOUS EPITHELIAL CELL,UR None Seen /HPF (None Seen)
[2022-03-16] MEDS ORDERED: KETOROLAC TROMETHAMINE 15 MG/ML VIAL ONE (02:49)
[2022-03-16] MEDS: KETOROLAC TROMETHAMINE INJ 30 MG/ML VIAL IM ONE (02:56)
--- NOTE | 2022-03-16 03:52 | NUR ---
Written and verbal after care instructions given. Patient verbalizes understanding of instruction. IV removed. Catheter intact and site benign. Pressure and 4x4 applied to site. No bleeding noted. pt ambulatory with a steady gait
[2022-03-16 03:57] VITALS: BP 157/93
[2022-03-16] MEDS ORDERED: HYDROCODONE/APAP 5/325MG TABLET ONE (04:08)
[2022-03-16] MEDS: HYDROCODONE/APAP 5/325MG TABLET PO ONE (04:12)
--- NOTE | 2022-03-16 04:35 | NUR ---
Patient discharged to home in stable condition. Written and verbal after care instructions given. Patient verbalizes understanding of instruction.
== END 2022-03-16 04:35 | disposition home or self-care (01) ==
LOC: ER 22:56
DX: N13.2 Hydronephrosis with renal and ureteral calculous obstruction (principal); R10.9 Unspecified abdominal pain; I10 Essential (primary) hypertension; I48.91 Unspecified atrial fibrillation; Z79.899 Other long term (current) drug therapy
CPT/HCPCS: 99284; 96374; 96361; 96375; 85025; 80048; 83690; 80076; 36415; 85730; 74176; 96376; 87086; 81001; J2405; J7030; J1885 ×2

== ENCOUNTER 2022-03-28 20:23 | Emergency (ER) | payer OTHER ==
[~2022-03-28] VITALS: Ht 177.8 cm; Wt 157.4 kg
[2022-03-28 20:35] VITALS: BP 155/105
--- NOTE | 2022-03-28 20:37 | NUR ---
c/o Left flank pain x today, Hx kidney stone 7/10 pain scale. PLACED ON BED, AAOX4, IN PAIN 8/10. SEEN AND EXAMINED BY DR JAMESON.
[2022-03-28] MEDS ORDERED: HYDROMORPHONE 1 MG/1 ML DISP.SYRIN IM ONE (21:00)
[2022-03-28] MEDS ORDERED: KETOROLAC TROMETHAMINE INJ 60 MG/2 ML VIAL IM ONE (21:00)
[2022-03-28] MEDS ORDERED: ONDANSETRON 4 MG TAB.RAPDIS SL ONE (21:00)
[2022-03-28] MEDS ORDERED: KETOROLAC TROMETHAMINE INJ 30 MG/ML VIAL ONE (21:10)
[2022-03-28] MEDS ORDERED: ONDANSETRON 4 MG TAB.RAPDIS ONE (21:11)
[2022-03-28] MEDS ORDERED: HYDROMORPHONE 1 MG/1 ML DISP.SYRIN ONE (21:11)
--- NOTE | 2022-03-28 21:24 | NUR ---
Patient discharged to home in stable condition. Written and verbal after care instructions given. Patient verbalizes understanding of instruction.
== END 2022-03-28 21:24 | disposition home or self-care (01) ==
LOC: ER 20:26
DX: N20.0 Calculus of kidney (principal); Z87.442 Personal history of urinary calculi; I10 Essential (primary) hypertension; I48.91 Unspecified atrial fibrillation
CPT/HCPCS: 99284; 96372 ×2; J1885; Q0162; J1170

== ENCOUNTER 2022-06-04 20:50 | Emergency (ER) | payer OTHER ==
[~2022-06-04] VITALS: Ht 180.3 cm; Wt 154.2 kg
--- NOTE | 2022-06-04 21:05 | NUR ---
BIBSELF C/O LEFT SIDED FLANK PAIN X 3-4DAYS HX OF KIDNEY STONES 4 MONTHS AGO. PATIENT PAIN SCALE 8/10. AAOX4. ABLE TO MAKE NEEDS KNOWN. VITALS CHECKED.
[2022-06-04] MEDS ORDERED: IV NS 0.9% 1,000 ML BAG IV ONE (21:30)
[2022-06-04] MEDS ORDERED: KETOROLAC TROMETHAMINE INJ 30 MG/ML VIAL IV ONE (21:30)
[2022-06-04] MEDS ORDERED: ONDANSETRON HCL/PF 4 MG/2 ML VIAL IVP ONE (21:30)
[2022-06-04] MEDS ORDERED: ONDANSETRON HCL/PF 4 MG/2 ML VIAL ONE (21:36)
[2022-06-04] MEDS ORDERED: KETOROLAC TROMETHAMINE INJ 30 MG/ML VIAL ONE (21:36)
[2022-06-04 22:02] LABS: BILIRUBIN,URINE NEGATIVE (NEGATIVE); COLOR,URINE YELLOW (YELLOW); LEUKOCYTE ESTERASE ,URINE NEGATIVE (NEGATIVE); NITRITE, URINE NEGATIVE (NEGATIVE); PROTEIN,URINE NEGATIVE (NEGATIVE); UGLUCOSE NEGATIVE (NEGATIVE); UROBILINOGEN,URINE 0.2 EU/dL (0.2)
[2022-06-04 22:06] LABS: BACTERIA,URINE None seen /HPF (None Seen); RBC,URINE 51-80 /HPF (0-2); SQUAMOUS EPITHELIAL CELL,UR 0-2 /HPF (None Seen); WBC,URINE 0-2 /HPF (0-3)
--- NOTE | 2022-06-04 22:17 | NUR ---
IV CANNULA G20 INSERTED ON RIGHT. BLOOD DRAWN AND SENT TO LAB
[2022-06-04 22:31] LABS: BASOPHILS % (AUTO) 0.2 % (0.0-2.0); EOSINOPHILS % (AUTO) 0.7 % (0.0-6.0); HEMATOCRIT 42 % (39-51); HEMOGLOBIN 13.5 g/dL (13.5-17.5); LYMPHOCYTES # (AUTO) 1.6 K/uL (0.8-4.8); LYMPHOCYTES % (AUTO) 17.2 % (20.0-44.0); MEAN CORPUSCULAR HGB CONC 33 g/dl (31.0-36.0); MEAN CORPUSCULAR VOLUME 91 fL (80-96); MONOCYTES # (AUTO) 0.8 K/uL (0.1-1.30); NEUTROPHILS # (AUTO) 6.7 K/uL (1.8-8.9); NEUTROPHILS % (AUTO) 72.9 % (43.0-81.0); PLATELET COUNT (AUTO) 232 K/uL (150-450); RED BLOOD CELL COUNT(AUTO) 4.58 MIL/uL (4.5-6.0); WHITE BLOOD COUNT (AUTO) 9.2 K/uL (4.3-11.0)
[2022-06-04 22:49] LABS: ALBUMIN 3.6 g/dL (3.4-5.0); BILIRUBIN,DIRECT 0.1 mg/dL (0.0-0.2); BILIRUBIN,TOTAL 0.3 mg/dL (0.2-1.0); CREATININE 1.4 mg/dL (0.6-1.3); POTASSIUM 3.3 mmol/L (3.5-5.1); TOTAL PROTEIN, SERUM 7.4 g/dL (6.4-8.2)
[2022-06-04] MEDS ORDERED: TAMS-12 PO (23:24)
[2022-06-05] MEDS ORDERED: TAMS-12 PO (00:16)
[2022-06-05 00:19] VITALS: BP 144/77
--- NOTE | 2022-06-05 00:20 | NUR ---
Patient discharged to home in stable condition. Written and verbal after care instructions given. Patient verbalizes understanding of instruction.IV removed. Catheter intact and site benign. Pressure and 4x4 applied to site. No bleeding noted.
== END 2022-06-05 00:19 | disposition home or self-care (01) ==
LOC: ER 20:59
DX: R10.9 Unspecified abdominal pain (principal); N20.0 Calculus of kidney; I10 Essential (primary) hypertension; I48.91 Unspecified atrial fibrillation; F17.200 Nicotine dependence, unspecified, uncomplicated; Z87.442 Personal history of urinary calculi; Z79.899 Other long term (current) drug therapy
CPT/HCPCS: 99284; 96374; 96361; 96375; 85025; 80048; 83690; 80076; 81001; 36415; 85730; J1885; J2405; J7030